=== PATIENT | male | born 1985 | race Two or more races ===

== ENCOUNTER 2018-02-03 03:02 | Emergency (ER) | payer OTHER | END 2018-02-03 03:51 | LOC: E/R 03:02 | DX: S30.811A Abrasion of abdominal wall, initial encounter (principal); F17.210 Nicotine dependence, cigarettes, uncomplicated; R07.9 Chest pain, unspecified; W22.8XXA Striking against or struck by other objects, initial encounter; Y92.9 Unspecified place or not applicable; Z02.89 Encounter for other administrative examinations | CPT/HCPCS: 93005; 99283-25 ==